=== PATIENT | male | born 1965 | race Caucasian/White ===

== ENCOUNTER 2018-06-15 18:15 | Emergency (ER) | payer MEDICARE ==
[~2018-06-15] VITALS: Ht 170.2 cm; Wt 63.6 kg
[2018-06-15 18:31] VITALS: Ht 170.2 cm; Wt 63.6 kg
[2018-06-15] MEDS ORDERED: LEVEMIR100 U/M1 SC (18:32)
[2018-06-15] MEDS ORDERED: HYDROCODONE-APA1 TAB PO (18:32)
[2018-06-15] MEDS ORDERED: FORTEO PEN20 MCG SQ (18:33)
[2018-06-15 23:05] VITALS: BP 177/69
== END 2018-06-15 22:33 | disposition home or self-care (01) ==
LOC: D.ER 18:15
DX: M54.5 Low back pain (principal); E11.9 Type 2 diabetes mellitus without complications; G40.909 Epilepsy, unspecified, not intractable, without status epilepticus